=== PATIENT | male | born 1970 | race Caucasian/White ===

== ENCOUNTER 2016-12-07 07:32 | Day surgery (SDC) | payer OTHER ==
[~2016-12-07] VITALS: Ht 167.6 cm; Wt 76.8 kg
[~2016-12-07 07:32] MED LIST: ASPIR 8181 M1 PO; Cipro PO; FIORINAL 50-321 EACH PO; Flagyl PO; HYDROCHLOROTHIA25 MG PO; NEXIUM40 MG PO; PROTONIX40 MG PO; TOPAMAX25 MG PO; ULTRAM50 MG PO
== END 2016-12-07 09:00 | disposition home or self-care (01) ==
LOC: PAIN 07:32
DX: M46.1 Sacroiliitis, not elsewhere classified (principal); F41.9 Anxiety disorder, unspecified; I10 Essential (primary) hypertension; Z86.73 Personal history of transient ischemic attack (TIA), and cerebral infarction without residual deficits; M19.90 Unspecified osteoarthritis, unspecified site; Z79.82 Long term (current) use of aspirin; Z88.1 Allergy status to other antibiotic agents; Z88.5 Allergy status to narcotic agent
CPT/HCPCS: J1030; J1100; J2250; J3010; S0020

== ENCOUNTER 2017-02-04 12:22 | Day surgery (SDC) | payer OTHER ==
[~2017-02-04] VITALS: Ht 167.6 cm; Wt 80.7 kg
== END 2017-02-04 14:15 | disposition home or self-care (01) ==
LOC: PAIN 12:22
DX: M47.26 Other spondylosis with radiculopathy, lumbar region (principal); M54.5 Low back pain; G89.29 Other chronic pain; M48.061 Spinal stenosis, lumbar region without neurogenic claudication; M50.10 Cervical disc disorder with radiculopathy, unspecified cervical region; I10 Essential (primary) hypertension; M53.3 Sacrococcygeal disorders, not elsewhere classified; Z86.73 Personal history of transient ischemic attack (TIA), and cerebral infarction without residual deficits; Z79.891 Long term (current) use of opiate analgesic; Z87.891 Personal history of nicotine dependence; Z79.82 Long term (current) use of aspirin
CPT/HCPCS: J1030; J2250; J3010; S0020

== ENCOUNTER 2017-03-08 12:42 | Day surgery (SDC) | payer OTHER ==
[~2017-03-08] VITALS: Ht 167.6 cm; Wt 80.7 kg
[2017-03-08] MEDS ORDERED: MOTRIN800 MG PO (13:02)
== END 2017-03-08 14:40 | disposition home or self-care (01) ==
LOC: PAIN 12:42 → SDC 13:00 → PAIN 14:40
DX: M47.26 Other spondylosis with radiculopathy, lumbar region (principal); M54.5 Low back pain; G89.29 Other chronic pain; M48.061 Spinal stenosis, lumbar region without neurogenic claudication; M54.12 Radiculopathy, cervical region; I10 Essential (primary) hypertension; K21.9 Gastro-esophageal reflux disease without esophagitis; Z79.82 Long term (current) use of aspirin; Z79.891 Long term (current) use of opiate analgesic; Z86.73 Personal history of transient ischemic attack (TIA), and cerebral infarction without residual deficits; Z87.891 Personal history of nicotine dependence
CPT/HCPCS: J1030; J2250; J3010; S0020

== ENCOUNTER → 2017-08-05 | Outpatient (CLI) | payer OTHER ==
[~2017-08-05] VITALS: Ht 167.6 cm; Wt 75.7 kg
[~2017-08-05] MED LIST changes: +ASCORBIC ACID500 M1 PO; +BENADRYL25 MG PO; +EXCEDRIN MIGRA1 EAC3 PO; +MOTRIN800 MG PO; +PROMETHAZINE HC25 M1 PO
== END | disposition home or self-care (01) ==
LOC: AMB 10:45
DX: K57.30 Diverticulosis of large intestine without perforation or abscess without bleeding (principal); R10.9 Unspecified abdominal pain; R11.10 Vomiting, unspecified; K21.9 Gastro-esophageal reflux disease without esophagitis; I10 Essential (primary) hypertension; Z86.73 Personal history of transient ischemic attack (TIA), and cerebral infarction without residual deficits; Z79.82 Long term (current) use of aspirin; F17.200 Nicotine dependence, unspecified, uncomplicated; Z88.1 Allergy status to other antibiotic agents; Z88.5 Allergy status to narcotic agent; Z82.49 Family history of ischemic heart disease and other diseases of the circulatory system
CPT/HCPCS: 93005; J2250

== ENCOUNTER → 2017-08-13 | Outpatient (CLI) | payer OTHER | END | disposition home or self-care (01) | LOC: RAD 08:47 → EDSTATUS 09:00 → RAD 09:00 | DX: R93.41 Abnormal radiologic findings on diagnostic imaging of renal pelvis, ureter, or bladder (principal) | CPT/HCPCS: 72194 ==

== ENCOUNTER 2017-08-29 22:01 | Inpatient (IN) | payer OTHER ==
[~2017-08-29] VITALS: Ht 167.6 cm; Wt 82.5 kg
[~2017-08-29 22:01] MED LIST changes: -TOPAMAX25 MG PO; +TOPAMAX50 MG PO
[2017-08-30 10:11] VITALS: BP 127/83
[2017-08-30 17:02] VITALS: BP 124/78
[2017-08-30 19:32] VITALS: BP 102/68
[2017-08-30 23:32] VITALS: BP 107/63
[2017-08-31 04:00] VITALS: BP 100/68
[2017-08-31 06:07] LABS: HEMATOCRIT 31.3 % (38.0-50.0); MCH 30.6 PG (29.0-34.0); MCHC 34.8 G/DL (30.0-36.0); MCV 87.9 FL (86-99); PLATELET COUNT 235 K/uL (156-360); RBC DIS.WIDTH-CV 12.3 % (11.8-14.6); WHITE BLOOD COUNT 9.2 K/uL (4.1-10.2)
[2017-08-31 06:10] LABS: HEMOGLOBIN 10.9 G/DL (12.5-16.6); RED BLOOD COUNT 3.56 M/uL (4.00-5.50)
[2017-08-31 06:33] LABS: CHLORIDE 106 MEQ/L (99-109); CREATININE 0.9 MG/DL (0.6-1.3); GFR ESTIMATE (CALCULATED) > 59 mL/min/ (58.99-99999); GLUCOSE 132 mg/dL (70-99); MAGNESIUM 1.9 mg/dl (1.3-2.7); POTASSIUM 3.7 MEQ/L (3.7-5.4); SODIUM 137 MEQ/L (136-147); UREA NITROGEN (BUN) 11 mg/dL (9-23)
[2017-08-31 07:00] VITALS: BP 108/78
[2017-08-31 11:30] VITALS: BP 102/61
[2017-08-31 16:55] VITALS: BP 100/58
[2017-08-31 18:24] LABS: BASOPHIL (%) 0.6 % (0-1); BASOPHIL COUNT 0.1 K/uL (0-0.1); EOSINOPHIL (%) 0.7 % (0-5); EOSINOPHIL COUNT 0.1 K/uL (0-0.3); HEMOGLOBIN 10.8 G/DL (12.5-16.6); IMMATURE GRANULOCYTE (%) 0.6 % (0.0-0.7); LYMPHOCYTE (%) 22.8 % (15-42); LYMPHOCYTE COUNT 2.5 K/uL (1.0-2.8); MCH 31.1 PG (29.0-34.0); MCV 86.5 FL (86-99); MONOCYTE (%) 11.7 % (3-12); MONOCYTE COUNT 1.3 K/uL (0-0.8); NEUTROPHIL (%) 63.6 % (45-76); NEUTROPHIL COUNT 6.9 K/uL (1.8-6.4); NRBC (%) 0.2 /100 WBC (0-0); RBC DIS.WIDTH-CV 12.5 % (11.8-14.6); RED BLOOD COUNT 3.47 M/uL (4.00-5.50); WHITE BLOOD COUNT 10.8 K/uL (4.1-10.2)
[2017-08-31 19:08] LABS: PLATELET COUNT 200 K/uL (156-360)
[2017-08-31 21:05] VITALS: BP 127/70
[2017-09-01 00:46] VITALS: BP 100/57
[2017-09-01 04:21] VITALS: BP 112/64
[2017-09-01 06:27] LABS: BASOPHIL (%) 0.5 % (0-1); EOSINOPHIL (%) 1.1 % (0-5); EOSINOPHIL COUNT 0.1 K/uL (0-0.3); HEMATOCRIT 23.7 % (38.0-50.0); IMMATURE GRANULOCYTE (%) 0.3 % (0.0-0.7); LYMPHOCYTE (%) 20.6 % (15-42); LYMPHOCYTE COUNT 1.6 K/uL (1.0-2.8); MCH 30.9 PG (29.0-34.0); MCV 88.1 FL (86-99); MONOCYTE (%) 13.7 % (3-12); NEUTROPHIL (%) 63.8 % (45-76); NEUTROPHIL COUNT 4.8 K/uL (1.8-6.4); PLATELET COUNT 212 K/uL (156-360); RBC DIS.WIDTH-CV 12.8 % (11.8-14.6); RBC DIS.WIDTH-SD 40.8 % (39-53); WHITE BLOOD COUNT 7.6 K/uL (4.1-10.2)
[2017-09-01 06:30] LABS: HEMOGLOBIN 8.3 G/DL (12.5-16.6); RED BLOOD COUNT 2.69 M/uL (4.00-5.50)
[2017-09-01 07:06] LABS: CHLORIDE 103 MEQ/L (99-109); CREATININE 1.2 MG/DL (0.6-1.3); GFR ESTIMATE (CALCULATED) > 59 mL/min/ (58.99-99999); GLUCOSE 118 mg/dL (70-99); POTASSIUM 3.4 MEQ/L (3.7-5.4); SODIUM 135 MEQ/L (136-147); UREA NITROGEN (BUN) 7 mg/dL (9-23)
[2017-09-01 07:14] VITALS: BP 99/57
[2017-09-01 07:33] VITALS: BP 101/60
[2017-09-01 11:53] VITALS: BP 105/57
[2017-09-01 16:09] VITALS: BP 122/57
[2017-09-01 17:58] LABS: BASOPHIL (%) 0.5 % (0-1); BASOPHIL COUNT 0.1 K/uL (0-0.1); EOSINOPHIL (%) 0.7 % (0-5); EOSINOPHIL COUNT 0.1 K/uL (0-0.3); HEMATOCRIT 22.5 % (38.0-50.0); IMMATURE GRANULOCYTE (%) 0.5 % (0.0-0.7); LYMPHOCYTE (%) 18.6 % (15-42); LYMPHOCYTE COUNT 1.8 K/uL (1.0-2.8); MCH 31.3 PG (29.0-34.0); MCHC 35.6 G/DL (30.0-36.0); MCV 87.9 FL (86-99); MONOCYTE (%) 14.4 % (3-12); MONOCYTE COUNT 1.4 K/uL (0-0.8); NEUTROPHIL (%) 65.3 % (45-76); NEUTROPHIL COUNT 6.1 K/uL (1.8-6.4); PLATELET COUNT 214 K/uL (156-360); RBC DIS.WIDTH-CV 12.6 % (11.8-14.6); RBC DIS.WIDTH-SD 40.8 % (39-53); RED BLOOD COUNT 2.56 M/uL (4.00-5.50); WHITE BLOOD COUNT 9.4 K/uL (4.1-10.2)
[2017-09-02] VITALS (16 sets, daily range): BP systolic 90–113; BP diastolic 51–67
[2017-09-02 06:48] LABS: BASOPHIL (%) 0.4 % (0-1); EOSINOPHIL (%) 1.3 % (0-5); EOSINOPHIL COUNT 0.1 K/uL (0-0.3); HEMATOCRIT 20.2 % (38.0-50.0); HEMOGLOBIN 7.2 G/DL (12.5-16.6); IMMATURE GRANULOCYTE (%) 0.4 % (0.0-0.7); LYMPHOCYTE (%) 15.2 % (15-42); LYMPHOCYTE COUNT 1.2 K/uL (1.0-2.8); MCH 30.6 PG (29.0-34.0); MCHC 35.6 G/DL (30.0-36.0); MONOCYTE (%) 13.8 % (3-12); MONOCYTE COUNT 1.1 K/uL (0-0.8); NEUTROPHIL (%) 68.9 % (45-76); NEUTROPHIL COUNT 5.3 K/uL (1.8-6.4); PLATELET COUNT 182 K/uL (156-360); RBC DIS.WIDTH-CV 12.5 % (11.8-14.6); RBC DIS.WIDTH-SD 39.3 % (39-53); RED BLOOD COUNT 2.35 M/uL (4.00-5.50); WHITE BLOOD COUNT 7.8 K/uL (4.1-10.2)
[2017-09-02 06:59] LABS: CHLORIDE 96 MEQ/L (99-109); GFR ESTIMATE (CALCULATED) > 59 mL/min/ (58.99-99999); GLUCOSE 127 mg/dL (70-99); POTASSIUM 3.3 MEQ/L (3.7-5.4); SODIUM 131 MEQ/L (136-147); UREA NITROGEN (BUN) 6 mg/dL (9-23)
[2017-09-02 17:44] LABS: INTER. NORMALIZED RATIO 2.3
[2017-09-02 17:46] LABS: PTT 41.3 SEC (25-37)
[2017-09-02 20:59] LABS: BASOPHIL (%) 0.3 % (0-1); EOSINOPHIL (%) 0.6 % (0-5); HEMATOCRIT 20.9 % (38.0-50.0); HEMOGLOBIN 7.5 G/DL (12.5-16.6); IMMATURE GRANULOCYTE (%) 0.4 % (0.0-0.7); LYMPHOCYTE (%) 7.5 % (15-42); LYMPHOCYTE COUNT 0.5 K/uL (1.0-2.8); MCH 30.2 PG (29.0-34.0); MCHC 35.9 G/DL (30.0-36.0); MCV 84.3 FL (86-99); MONOCYTE (%) 7.6 % (3-12); MONOCYTE COUNT 0.5 K/uL (0-0.8); NEUTROPHIL (%) 83.6 % (45-76); NEUTROPHIL COUNT 5.7 K/uL (1.8-6.4); PLATELET COUNT 164 K/uL (156-360); RBC DIS.WIDTH-CV 12.7 % (11.8-14.6); RBC DIS.WIDTH-SD 38.3 % (39-53); RED BLOOD COUNT 2.48 M/uL (4.00-5.50); WHITE BLOOD COUNT 6.8 K/uL (4.1-10.2)
[2017-09-02 21:49] LABS: INTER. NORMALIZED RATIO 1.7
[2017-09-02 21:52] LABS: PTT 39.9 SEC (25-37)
[2017-09-03] VITALS (8 sets, daily range): BP systolic 97–186; BP diastolic 54–96
[2017-09-03 06:29] LABS: BASOPHIL (%) 0.1 % (0-1); EOSINOPHIL (%) 0 % (0-5); HEMATOCRIT 22.3 % (38.0-50.0); IMMATURE GRANULOCYTE (%) 0.4 % (0.0-0.7); LYMPHOCYTE (%) 7.3 % (15-42); LYMPHOCYTE COUNT 0.6 K/uL (1.0-2.8); MCH 30.3 PG (29.0-34.0); MCHC 35.9 G/DL (30.0-36.0); MCV 84.5 FL (86-99); MONOCYTE (%) 8.2 % (3-12); MONOCYTE COUNT 0.6 K/uL (0-0.8); NEUTROPHIL COUNT 6.5 K/uL (1.8-6.4); PLATELET COUNT 195 K/uL (156-360); RBC DIS.WIDTH-SD 39.1 % (39-53); RED BLOOD COUNT 2.64 M/uL (4.00-5.50); WHITE BLOOD COUNT 7.7 K/uL (4.1-10.2)
[2017-09-03 06:52] LABS: CHLORIDE 98 MEQ/L (99-109); CREATININE 0.9 MG/DL (0.6-1.3); GFR ESTIMATE (CALCULATED) > 59 mL/min/ (58.99-99999); GLUCOSE 127 mg/dL (70-99); POTASSIUM 3.8 MEQ/L (3.7-5.4); SODIUM 137 MEQ/L (136-147); UREA NITROGEN (BUN) 8 mg/dL (9-23)
[2017-09-03 07:46] LABS: INTER. NORMALIZED RATIO 1.4
[2017-09-03 07:49] LABS: PTT 36.1 SEC (25-37)
[2017-09-04 01:14] VITALS: BP 108/64
[2017-09-04 04:00] VITALS: BP 116/72
[2017-09-04 06:08] LABS: BASOPHIL (%) 0.4 % (0-1); EOSINOPHIL (%) 2.6 % (0-5); EOSINOPHIL COUNT 0.2 K/uL (0-0.3); HEMATOCRIT 23.9 % (38.0-50.0); HEMOGLOBIN 8.5 G/DL (12.5-16.6); IMMATURE GRANULOCYTE (%) 0.7 % (0.0-0.7); LYMPHOCYTE (%) 21.8 % (15-42); LYMPHOCYTE COUNT 1.6 K/uL (1.0-2.8); MCH 31.3 PG (29.0-34.0); MCHC 35.6 G/DL (30.0-36.0); MCV 87.9 FL (86-99); MONOCYTE (%) 12.2 % (3-12); MONOCYTE COUNT 0.9 K/uL (0-0.8); NEUTROPHIL (%) 62.3 % (45-76); NEUTROPHIL COUNT 4.6 K/uL (1.8-6.4); PLATELET COUNT 248 K/uL (156-360); RBC DIS.WIDTH-CV 13.7 % (11.8-14.6); RBC DIS.WIDTH-SD 43.2 % (39-53); RED BLOOD COUNT 2.72 M/uL (4.00-5.50); WHITE BLOOD COUNT 7.4 K/uL (4.1-10.2)
[2017-09-04 06:40] LABS: CHLORIDE 101 MEQ/L (99-109); CREATININE 0.8 MG/DL (0.6-1.3); GFR ESTIMATE (CALCULATED) > 59 mL/min/ (58.99-99999); GLUCOSE 102 mg/dL (70-99); POTASSIUM 3.2 MEQ/L (3.7-5.4); SODIUM 137 MEQ/L (136-147); UREA NITROGEN (BUN) 8 mg/dL (9-23)
[2017-09-04 07:36] VITALS: BP 105/58
[2017-09-04 11:37] VITALS: BP 114/60
[2017-09-04 15:37] VITALS: BP 126/71
[2017-09-04 19:46] VITALS: BP 110/70
[2017-09-05 03:21] VITALS: BP 111/71
[2017-09-05 05:45] LABS: HEMATOCRIT 23.2 % (38.0-50.0); HEMOGLOBIN 8.3 G/DL (12.5-16.6); MCH 31.2 PG (29.0-34.0); MCHC 35.8 G/DL (30.0-36.0); MCV 87.2 FL (86-99); PLATELET COUNT 270 K/uL (156-360); RBC DIS.WIDTH-CV 13.6 % (11.8-14.6); RBC DIS.WIDTH-SD 42.3 % (39-53); RED BLOOD COUNT 2.66 M/uL (4.00-5.50); WHITE BLOOD COUNT 7.4 K/uL (4.1-10.2)
[2017-09-05 06:13] LABS: CHLORIDE 104 MEQ/L (99-109); CREATININE 0.7 MG/DL (0.6-1.3); GFR ESTIMATE (CALCULATED) > 59 mL/min/ (58.99-99999); GLUCOSE 96 mg/dL (70-99); POTASSIUM 3.3 MEQ/L (3.7-5.4); SODIUM 136 MEQ/L (136-147); UREA NITROGEN (BUN) 9 mg/dL (9-23)
[2017-09-05 07:49] VITALS: BP 113/64
[2017-09-05 16:47] VITALS: BP 101/56
[2017-09-05 23:10] VITALS: BP 138/76
[2017-09-05 23:45] VITALS: BP 111/65
[2017-09-06 07:40] VITALS: BP 131/83
[2017-09-06 11:34] VITALS: BP 123/96
[2017-09-06] MEDS ORDERED: COLACE100 MG PO (12:32)
[2017-09-06] MEDS ORDERED: BACTRIM,SEPT1 TABLET PO (12:32)
[2017-09-06] MEDS ORDERED: ONDANSETRON HCL8 MG PO (12:32)
[2017-09-06] MEDS ORDERED: TRAMADOL HCL50 MG PO (12:32)
[2017-09-06 13:26] LABS: BASOPHIL (%) 0.5 % (0-1); BASOPHIL COUNT 0.1 K/uL (0-0.1); EOSINOPHIL COUNT 0.2 K/uL (0-0.3); HEMATOCRIT 27.1 % (38.0-50.0); HEMOGLOBIN 9.5 G/DL (12.5-16.6); IMMATURE GRANULOCYTE (%) 0.8 % (0.0-0.7); LYMPHOCYTE (%) 15.2 % (15-42); LYMPHOCYTE COUNT 1.6 K/uL (1.0-2.8); MCHC 35.1 G/DL (30.0-36.0); MCV 88.6 FL (86-99); MONOCYTE (%) 9.8 % (3-12); NEUTROPHIL (%) 71.7 % (45-76); NEUTROPHIL COUNT 7.6 K/uL (1.8-6.4); PLATELET COUNT 387 K/uL (156-360); RBC DIS.WIDTH-CV 13.9 % (11.8-14.6); RBC DIS.WIDTH-SD 43.5 % (39-53); RED BLOOD COUNT 3.06 M/uL (4.00-5.50); WHITE BLOOD COUNT 10.6 K/uL (4.1-10.2)
[2017-09-06 23:19] VITALS: BP 107/69
[2017-09-07 08:17] VITALS: BP 101/66
== END 2017-09-07 13:02 | disposition home or self-care (01) | DRG 674 ==
LOC: 2SOUTH → ENRESERV 22:01 → CANRESERV 08-30 07:06 → ENRESERV 08-30 07:06 → CANRESERV 08-30 08:13 → 2SOUTH 08-30 09:16 → ENRESERV 08-30 12:19 → 5EAST 08-30 16:42 → ENPENDDIS 09-07 → 5EAST 09-07 13:02
PROVIDERS: Physician Assistant Surgical; Surgery
PROC: 0DTN4ZZ Resection of Sigmoid Colon, Percutaneous Endoscopic Approach (ICD-10-PCS; principal; 2017-08-30)
PROC: 0DNN4ZZ Release Sigmoid Colon, Percutaneous Endoscopic Approach (ICD-10-PCS; principal; 2017-08-30)
PROC: 0T778DZ Dilation of Left Ureter with Intraluminal Device, Via Natural or Artificial Opening Endoscopic (ICD-10-PCS; principal; 2017-08-30)
DX: N32.1 Vesicointestinal fistula (principal); K57.32 Diverticulitis of large intestine without perforation or abscess without bleeding; L76.32 Postprocedural hematoma of skin and subcutaneous tissue following other procedure; M96.831 Postprocedural hemorrhage of a musculoskeletal structure following other procedure; Y83.6 Removal of other organ (partial) (total) as the cause of abnormal reaction of the patient, or of later complication, without mention of misadventure at the time of the procedure; R31.0 Gross hematuria; K66.0 Peritoneal adhesions (postprocedural) (postinfection); R79.1 Abnormal coagulation profile; I10 Essential (primary) hypertension; K21.9 Gastro-esophageal reflux disease without esophagitis; G89.29 Other chronic pain; M54.9 Dorsalgia, unspecified; Z87.891 Personal history of nicotine dependence; Z79.82 Long term (current) use of aspirin
CPT/HCPCS: 74019; 74177; 80048; 82948; 83735; 85025; 85025 91; 85027; 85610; 85730; 86850; 86900; 86901; 86920; 88307; 97530 GP; J0131; J0610; J0690; J1100; J1170; J1200; J1644; J1650; J1940; J2060; J2250; J2270; J2405; J2710; J2765; J3010; J3430; J3480; J7050; J7120; J7643; P9016; P9017; Q0169; S0020; S0028; S0074

== ENCOUNTER → 2017-09-20 | Outpatient (CLI) | payer OTHER ==
[~2017-09-20] MED LIST changes: +BACTRIM,SEPT1 TABLET PO; +COLACE100 MG PO; +ONDANSETRON HCL8 MG PO; +TRAMADOL HCL50 MG PO
== END | disposition home or self-care (01) ==
LOC: RAD 14:00
DX: N20.0 Calculus of kidney (principal); K57.30 Diverticulosis of large intestine without perforation or abscess without bleeding; Z98.890 Other specified postprocedural states
CPT/HCPCS: 74177